=== PATIENT | male | born 1960 | race Caucasian/White ===

== ENCOUNTER 2016-10-17 05:34 | Emergency (ER) | payer MEDICARE ==
[~2016-10-17 05:34] MED LIST: ADV250INH INH; ALBU17IN INH; AMLO10TA2 PO; CEFT250T8 PO; DOCU10CA PO; GLIP2.5T PO; GLIP2.5T2 PO; HYDR25TAB PO; INSULANT SC; IPRASOL4 NEB; LOSA100T36 PO; METO50TA2 PO; MUCI600T34 PO; PRAV40TA PO; PRED10TA PO; PRED20TA PO; PRED20TAB PO; TYLE325T5 PO; VITA400C29 PO
--- NOTE | 2016-10-17 09:16 | REP ---
CHEST X-RAY: TWO VIEWS. History: Right-sided pleuritic pain. Findings: The lungs are well inflated and clear. Pleural angles are sharp. Heart size is normal. Pulmonary vasculature is not increased. No significant bony abnormality is seen. No change from comparison study March 30, 2015. Impression: Negative chest x-ray. Signed by Scotty Aguilar MD 10/17/2016 10:30 A
--- NOTE | 2016-10-17 09:24 | EDDOCDS ---
Physician Documentation [facility] Name: Rodríguez Foley Age: 56 yrs Sex: Male : 1960 Arrival Date: 10/17/2016 Time: 05:34 Bed 9 Private MD: Disposition: 10/17/16 09:02 Discharged to Home/Self Care. Impression: Pleurisy, Sebaceous cyst - LEFT posterior neck. - Condition is Stable. - Discharge Instructions: Epidermal Cyst, Fyif-ss-Lxni, Pleurisy, Qitc-lv-Eeys. - Medication Reconciliation, Local Pharmacy Hours form. - Follow up: Ruben Nicole PA-C; When: Call to arrange an appointment; Reason: Further diagnostic work-up, Recheck today's complaints, Continuance of care. - Problem is new. - Symptoms have improved. Historical: - Allergies: No known drug Allergies; - Home Meds: 1. Spiriva with HandiHaler 18 mcg Inhl CpDv 1 cap once daily (Last dose: 10/16/2016) 2. Symbicort inhalation 2 times per day 3. ventolin inhaler as needed 4. amlodipine 10 mg Oral tab 1 tab once daily (Last dose: 10/17/2016) 5. metoprolol tartrate 50 mg Oral tab 1 tab 2 times per day (Last dose: 10/17/2016) 6. losartan 100 mg oral tab 1 tab once daily (Last dose: 10/17/2016) - PMHx: Diabetes - NIDDM: controlled; Emphysema; Hypercholesterolemia; Hypertension; - PSHx: cyst removed from neck; - Social history: Smoking status: Patient states former smoker of tobacco. No barriers to communication noted, The patient speaks fluent Samoan, Speaks appropriately for age. - Family history: No immediate family members are acutely ill. - : The pt / caregiver states he / she is not on anticoagulants. Home medication list is obtained from the patient, [employer] import data. - Exposure Risk Screening:: None identified. Vital Signs: 10/17 05:41 BP 179 / 94; Pulse 69; Resp 18; Temp 98.9(TE); Pulse Ox 95% on R/A; Weight 117.93 kg / kmg1 259.99 lbs (R); Height 5 ft. 8 in. (172.72 cm) (R); Pain 10/10; 09:22 BP 142 / 89; Pulse 71; Resp 18; Temp 97.4; Pulse Ox 96% ; Pain 3/10; hs1 05:41 Body Mass Index 39.53 (117.93 kg, 172.72 cm) kmg1 MDM: 07:17 Chest, 2 View (pa\E\lat) Ordered. EDMS 07:55 Financial registration complete. mm15 08:25 COUNTS INCLUDE 234 BEDS AT THE [facility] Payment Agreement was scanned into [employer] and attached to record. mm15 Signatures: Dispatcher [employer] EDMS Marcia Garcia, RN RN kmg1 Nathanael Landry PA PA btw Alicja Gunn RN RN hs1 Karan Funk mm15 The chart was reviewed and I authenticate all verbal orders and agree with the evaluation and treatment provided.Corrections: (The following items were deleted from the chart) 05:46 05:41 Home Meds: losartan 100 mg oral tab 1 tab once daily (Last Dose: 10/16/2016); [id number] 05:46 05:41 Home Meds: amlodipine 10 mg Oral tab 1 tab once daily (Last Dose: 10/16/2016); [facility]mg1 05:46 05:41 Home Meds: metoprolol tartrate 50 mg Oral tab 1 tab 2 times per day (Last Dose: km 10/16/2016); km Attachments: 08:25 COUNTS INCLUDE 234 BEDS AT THE [facility] Payment Agreement mm15 MTDD
--- NOTE | 2016-10-17 09:24 | EDDOCDS ---
Nurse's Notes [facility] Name: Rodríguez Foley Age: 56 yrs Sex: Male : 1960 Arrival Date: 10/17/2016 Time: 05:34 Bed 9 Private MD: Diagnosis: Pleurisy;Sebaceous cyst-LEFT posterior neck Presentation: 10/17 05:37 Presenting complaint: Patient states: Pain under the ribs on the right. Cough started kmg1 this morning. Abscess on back of neck. Suicide/Homicide risk assessment- the patient denies having any suicidal and/or homicidal ideations and does not present with any other emotional, behavioral or mental health complaints. Status: Patient is not a rehabilitation services aide or dependent. Transition of care: patient was not received from another setting of care. 05:37 Acuity: CORINNA Level 4 km 05:37 Method Of Ar[place] [facility] [place] Adult Sepsis Screening: The patient does not have new or worsening altered mentation. hs1 Patient's respiratory rate is less than 22. Systolic blood pressure is greater than 100. Patient has a qSOFA score of 0- Negative Sepsis Screen. Triage Assessment: 05:41 General: Appears in no apparent distress, comfortable, Behavior is appropriate for age, kmg1 cooperative. Pain: Location: posterior cervical area and right scapular area Pain currently is 10 out of 10 on a pain scale. Aggravated by Deep breathing and coughing. HIV screening NA for this visit Offered previously. Respiratory: Onset: The symptoms/episode began/occurred suddenly, Breath sounds with wheezes Reports cough that is pain with cough. 05:41 Derm: Abscess located on scalp and posterior cervical area. kmg1 Historical: - Allergies: No known drug Allergies; - Home Meds: 1. Spiriva with HandiHaler 18 mcg Inhl CpDv 1 cap once daily (Last dose: 10/16/2016) 2. Symbicort inhalation 2 times per day 3. ventolin inhaler as needed 4. amlodipine 10 mg Oral tab 1 tab once daily (Last dose: 10/17/2016) 5. metoprolol tartrate 50 mg Oral tab 1 tab 2 times per day (Last dose: 10/17/2016) 6. losartan 100 mg oral tab 1 tab once daily (Last dose: 10/17/2016) - PMHx: Diabetes - NIDDM: controlled; Emphysema; Hypercholesterolemia; Hypertension; - PSHx: cyst removed from neck; - Social history: Smoking status: Patient states former smoker of tobacco. No barriers to communication noted, The patient speaks fluent Sri Lankan, Speaks appropriately for age. - Family history: No immediate family members are acutely ill. - : The pt / caregiver states he / she is not on anticoagulants. Home medication list is obtained from the patient, [employer] import data. - Exposure Risk Screening:: None identified. Screenin:20 Screening information is obtained from the patient. Fall risk: No risks identified. hs1 Assistance ADL's: requires no assistance with activities of daily living. Abuse/DV Screen: The patient / caregiver reports he/she is: not in a situation that causes fear, pain or injury. Nutritional screening: No deficits noted. Advance Directives: There is no active DNR order. home support is adequate. Assessment: 06:06 General: Appears in no apparent distress, comfortable, pt sitting in chair snoring when ko2 nurse went into room. Neurological: Level of Consciousness is awake, alert. Cardiovascular: Heart tones S1 S2 present Chest pain is denied. Respiratory: Airway is patent Respiratory effort is even, unlabored, Breath sounds are clear bilaterally. Breath sounds are diminished. GI: Abdomen is obese, Bowel sounds present X 4 quads. Derm: Skin is normal. 07:15 General: Appears in no apparent distress, comfortable, Behavior is appropriate for age, hs1 cooperative. Pain: Location: base of the skull Pain currently is 6 out of 10 on a pain scale. Neurological: Level of Consciousness is awake, alert, obeys commands. Cardiovascular: No deficits noted. Respiratory: Airway is patent Respiratory effort is even, unlabored, Breath sounds are clear bilaterally. GI: Abdomen is non- distended. Derm: Skin is pink, warm & dry. normal. 08:25 Reassessment: Patient appears in no apparent distress at this time. Patient states hs1 feeling better. Patient states symptoms have improved. Pt states feeling much better than previous. No needs noted. . Vital Signs: 05:41 BP 179 / 94; Pulse 69; Resp 18; Temp 98.9(TE); Pulse Ox 95% on R/A; Weight 117.93 kg kmg1 (R); Height 5 ft. 8 in. (172.72 cm) (R); Pain 10/10; 09:22 BP 142 / 89; Pulse 71; Resp 18; Temp 97.4; Pulse Ox 96% ; Pain 3/10; hs1 05:41 Body Mass Index 39.53 (117.93 kg, 172.72 cm) [facility] [place]: 05:41 Log In Time: October 17, 2016 at 05:34. [facility] [place] Course: 05:36 Patient visited by Debbi Bonner. gjb 05:36 Patient moved to Waiting gjb 05:39 [place] [facility] [place]:47 Theodora Varma RN is Primary Nurse. kmg1 05:47 Patient moved to 9 km 06:08 Patient visited by Theodora Varma RN. ko2 06:19 Patient visited by Jen Andino PCA. cln 06:19 Pt greeted and oriented to ED. Patient advised of names of staff involved in care, cln location of call ruiz, wait times and NPO status. Patient has correct armband on for positive identification. Bed in low position. Call light in reach. Side rails up X 1. 07:11 Nathanael Landry PA is PHCP. btw 07:11 Viktor Paniagua MD is Attending Physician. btw 07:11 Patient visited by Nathanael Landry PA. btw 07:22 Primary Nurse role handed off by Theodora Varma RN deg 07:44 Patient visited by Alicja Gunn RN. hs1 08:25 [facility] Payment Agreement was scanned into [employer] and attached to record. mm15 08:30 Patient visited by Alicja Gunn RN. hs1 09:01 Patient visited by Nya Kumar PCA. ct3 09:02 Ruben Nicole PA-C is Referral Physician. btw 09:20 No IV's were initiated during this patient's visit. No procedures done that require hs1 assistance. 09:21 The patient / caregiver is instructed regarding the plan of care and ED course. hs1 09:23 Chest, 2 View (pa\E\lat) Returned. EDMS Order Results: Radiology Order: Chest, 2 View (pa\E\lat) Test: Chest, 2 View (pa\E\lat) REASON FOR EXAMINATION: RLL pleuritic pain; CHEST X-RAY: TWO VIEWS.; ; History: Right-sided pleuritic pain.; ; Findings: The lungs are well inflated and clear. Pleural angles are sharp.; Heart size is normal. Pulmonary vasculature is not increased. No significant; bony abnormality is seen. No change from comparison study March 30, 2015.; ; Impression:; ; Negative chest x-ray.; ; ; ; ; Unreviewed; Outcome: 09:02 Discharge ordered by Provider. btw 09:20 Discharge Assessment: Patient awake, alert and oriented x 3. No cognitive and/or hs1 functional deficits noted. Patient verbalized understanding of disposition instructions. patient administered narcotics - no. The following High Risk Discharge criteria are identified: None. Discharged to home ambulatory, with significant other. Condition: stable. Discharge instructions given to patient, significant other, Instructed on discharge instructions, follow up and referral plans. medication usage, Demonstrated understanding of instructions, medications, Pt was receptive of discharge instructions/ teaching. No special radiology studies were completed. Property sent home with patient. 09:23 Patient left the ED. hs1 Signatures: Dispatcher [employer] EDMS Nadine Giang, Cuff Slitter Unit deg Marcia Garcia, RN RN kmg1 Nathanael Landry PA PA btw Alicja Gunn RN RN hs1 Nya Kumar, [employer] WORKER [employer] WORKER ct3 Karan Funk mm15 Theodora Varma,RN RN ko2 Debbi Bonner Crystal, [employer] FACTORY WORKER [employer] FA[employer]ORY WORKER cln Corrections: (The following items were deleted from the chart) 05:46 05:41 Home Meds: losartan 100 mg oral tab 1 tab once daily (Last Dose: 10/16/2016); [id number] 05:46 05:41 Home Meds: amlodipine 10 mg Oral tab 1 tab once daily (Last Dose: 10/16/2016); km kmg1 05:46 05:41 Home Meds: metoprolol tartrate 50 mg Oral tab 1 tab 2 times per day (Last Dose: kmg1 10/16/2016); km MTDD
--- NOTE | 2016-10-19 10:23 | EDDOCDS ---
Physician Documentation [facility] Name: Rodríguez Foley Age: 56 yrs Sex: Male : 1960 Arrival Date: 10/17/2016 Time: 05:34 Bed 9 Private MD: Disposition: 10/17/16 09:02 Discharged to Home/Self Care. Impression: Pleurisy, Sebaceous cyst - LEFT posterior neck. - Condition is Stable. - Discharge Instructions: Epidermal Cyst, Hchu-sg-Wgro, Pleurisy, Ebne-mn-Pqub. - Medication Reconciliation, Local Pharmacy Hours form. - Follow up: Ruben Nicole PA-C; When: Call to arrange an appointment; Reason: Further diagnostic work-up, Recheck today's complaints, Continuance of care. - Problem is new. - Symptoms have improved. Historical: - Allergies: No known drug Allergies; - Home Meds: 1. Spiriva with HandiHaler 18 mcg Inhl CpDv 1 cap once daily (Last dose: 10/16/2016) 2. Symbicort inhalation 2 times per day 3. ventolin inhaler as needed 4. amlodipine 10 mg Oral tab 1 tab once daily (Last dose: 10/17/2016) 5. metoprolol tartrate 50 mg Oral tab 1 tab 2 times per day (Last dose: 10/17/2016) 6. losartan 100 mg oral tab 1 tab once daily (Last dose: 10/17/2016) - PMHx: Diabetes - NIDDM: controlled; Emphysema; Hypercholesterolemia; Hypertension; - PSHx: cyst removed from neck; - Social history: Smoking status: Patient states former smoker of tobacco. No barriers to communication noted, The patient speaks fluent Ivorian, Speaks appropriately for age. - Family history: No immediate family members are acutely ill. - : The pt / caregiver states he / she is not on anticoagulants. Home medication list is obtained from the patient, [employer] import data. - Exposure Risk Screening:: None identified. Vital Signs: 10/17 05:41 BP 179 / 94; Pulse 69; Resp 18; Temp 98.9(TE); Pulse Ox 95% on R/A; Weight 117.93 kg / kmg1 259.99 lbs (R); Height 5 ft. 8 in. (172.72 cm) (R); Pain 10/10; 09:22 BP 142 / 89; Pulse 71; Resp 18; Temp 97.4; Pulse Ox 96% ; Pain 3/10; hs1 05:41 Body Mass Index 39.53 (117.93 kg, 172.72 cm) kmg1 MDM: 07:17 Chest, 2 View (pa\E\lat) Ordered. EDMS 07:55 Financial registration complete. mm15 08:25 [facility] Payment Agreement was scanned into [employer] and attached to record. mm15 13:14 T-Sheet-- Draft Copy was scanned into [employer] and attached to record. gb Signatures: Dispatcher [employer] EDMS Marcia Garcia RN RN kmg1 Jackie Lopez, Reg Reg gb Nathanael Landry PA PA btw Alicja Gunn RN RN hs1 Karan Funk mm15 The chart was reviewed and I authenticate all verbal orders and agree with the evaluation and treatment provided.Corrections: (The following items were deleted from the chart) 05:46 05:41 Home Meds: losartan 100 mg oral tab 1 tab once daily (Last Dose: 10/16/2016); [id number] 05:46 05:41 Home Meds: amlodipine 10 mg Oral tab 1 tab once daily (Last Dose: 10/16/2016); km kmg1 05:46 05:41 Home Meds: metoprolol tartrate 50 mg Oral tab 1 tab 2 times per day (Last Dose: kmg1 10/16/2016); kmg1 Attachments: 08:25 [facility] Payment Agreement mm15 13:14 T-Sheet-- Draft Copy gb Chart Complete MTDD
--- NOTE | 2016-10-19 10:23 | EDDOCDS ---
Physician Documentation [facility] Name: Rodríguez Foley Age: 56 yrs Sex: Male : 1960 Arrival Date: 10/17/2016 Time: 05:34 Bed 9 Private MD: Disposition: 10/17/16 09:02 Discharged to Home/Self Care. Impression: Pleurisy, Sebaceous cyst - LEFT posterior neck. - Condition is Stable. - Discharge Instructions: Epidermal Cyst, Leqx-of-Vren, Pleurisy, Wjun-eu-Cdan. - Medication Reconciliation, Local Pharmacy Hours form. - Follow up: Ruben Nicole PA-C; When: Call to arrange an appointment; Reason: Further diagnostic work-up, Recheck today's complaints, Continuance of care. - Problem is new. - Symptoms have improved. Historical: - Allergies: No known drug Allergies; - Home Meds: 1. Spiriva with HandiHaler 18 mcg Inhl CpDv 1 cap once daily (Last dose: 10/16/2016) 2. Symbicort inhalation 2 times per day 3. ventolin inhaler as needed 4. amlodipine 10 mg Oral tab 1 tab once daily (Last dose: 10/17/2016) 5. metoprolol tartrate 50 mg Oral tab 1 tab 2 times per day (Last dose: 10/17/2016) 6. losartan 100 mg oral tab 1 tab once daily (Last dose: 10/17/2016) - PMHx: Diabetes - NIDDM: controlled; Emphysema; Hypercholesterolemia; Hypertension; - PSHx: cyst removed from neck; - Social history: Smoking status: Patient states former smoker of tobacco. No barriers to communication noted, The patient speaks fluent Syrian, Speaks appropriately for age. - Family history: No immediate family members are acutely ill. - : The pt / caregiver states he / she is not on anticoagulants. Home medication list is obtained from the patient, [employer] import data. - Exposure Risk Screening:: None identified. Vital Signs: 10/17 05:41 BP 179 / 94; Pulse 69; Resp 18; Temp 98.9(TE); Pulse Ox 95% on R/A; Weight 117.93 kg / kmg1 259.99 lbs (R); Height 5 ft. 8 in. (172.72 cm) (R); Pain 10/10; 09:22 BP 142 / 89; Pulse 71; Resp 18; Temp 97.4; Pulse Ox 96% ; Pain 3/10; hs1 05:41 Body Mass Index 39.53 (117.93 kg, 172.72 cm) kmg1 MDM: 07:17 Chest, 2 View (pa\E\lat) Ordered. EDMS 07:55 Financial registration complete. mm15 08:25 [facility] Payment Agreement was scanned into [employer] and attached to record. mm15 13:14 T-Sheet-- Draft Copy was scanned into [employer] and attached to record. gb Signatures: Dispatcher [employer] EDMS Marcia Garcia RN RN kmg1 Jackie Lopez, Reg Reg gb Nathanael Landry PA PA btw Alicja Gunn RN RN hs1 Karan Funk mm15 The chart was reviewed and I authenticate all verbal orders and agree with the evaluation and treatment provided.Corrections: (The following items were deleted from the chart) 05:46 05:41 Home Meds: losartan 100 mg oral tab 1 tab once daily (Last Dose: 10/16/2016); [id number] 05:46 05:41 Home Meds: amlodipine 10 mg Oral tab 1 tab once daily (Last Dose: 10/16/2016); km kmg1 05:46 05:41 Home Meds: metoprolol tartrate 50 mg Oral tab 1 tab 2 times per day (Last Dose: kmg1 10/16/2016); kmg1 Attachments: 08:25 [facility] Payment Agreement mm15 13:14 T-Sheet-- Draft Copy gb Chart Complete MTDD
--- NOTE | 2016-10-19 10:24 | EDDOCDS ---
Nurse's Notes [facility] Name: Rodríguez Foley Age: 56 yrs Sex: Male : 1960 Arrival Date: 10/17/2016 Time: 05:34 Bed 9 Private MD: Diagnosis: Pleurisy;Sebaceous cyst-LEFT posterior neck Presentation: 10/17 05:37 Presenting complaint: Patient states: Pain under the ribs on the right. Cough started kmg1 this morning. Abscess on back of neck. Suicide/Homicide risk assessment- the patient denies having any suicidal and/or homicidal ideations and does not present with any other emotional, behavioral or mental health complaints. 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 Transition of care: patient was not received from another setting of care. 05:37 Acuity: CORINNA Level 4 km 05:37 Method Of Arrival: Walkin/Carried/Asstd [facility] 07:15 Adult Sepsis Screening: The patient does not have new or worsening altered mentation. hs1 Patient's respiratory rate is less than 22. Systolic blood pressure is greater than 100. Patient has a qSOFA score of 0- Negative Sepsis Screen. Triage Assessment: 05:41 General: Appears in no apparent distress, comfortable, Behavior is appropriate for age, kmg1 cooperative. Pain: Location: posterior cervical area and right scapular area Pain currently is 10 out of 10 on a pain scale. Aggravated by Deep breathing and coughing. HIV screening NA for this visit Offered previously. Respiratory: Onset: The symptoms/episode began/occurred suddenly, Breath sounds with wheezes Reports cough that is pain with cough. 05:41 Derm: Abscess located on scalp and posterior cervical area. kmg1 Historical: - Allergies: No known drug Allergies; - Home Meds: 1. Spiriva with HandiHaler 18 mcg Inhl CpDv 1 cap once daily (Last dose: 10/16/2016) 2. Symbicort inhalation 2 times per day 3. ventolin inhaler as needed 4. amlodipine 10 mg Oral tab 1 tab once daily (Last dose: 10/17/2016) 5. metoprolol tartrate 50 mg Oral tab 1 tab 2 times per day (Last dose: 10/17/2016) 6. losartan 100 mg oral tab 1 tab once daily (Last dose: 10/17/2016) - PMHx: Diabetes - NIDDM: controlled; Emphysema; Hypercholesterolemia; Hypertension; - PSHx: cyst removed from neck; - Social history: Smoking status: Patient states former smoker of tobacco. No barriers to communication noted, The patient speaks fluent Guatemalan, Speaks appropriately for age. - Family history: No immediate family members are acutely ill. - : The pt / caregiver states he / she is not on anticoagulants. Home medication list is obtained from the patient, [employer] import data. - Exposure Risk Screening:: None identified. Screenin:20 Screening information is obtained from the patient. Fall risk: No risks identified. hs1 Assistance ADL's: requires no assistance with activities of daily living. Abuse/DV Screen: The patient / caregiver reports he/she is: not in a situation that causes fear, pain or injury. Nutritional screening: No deficits noted. Advance Directives: There is no active DNR order. home support is adequate. Assessment: 06:06 General: Appears in no apparent distress, comfortable, pt sitting in chair snoring when ko2 nurse went into room. Neurological: Level of Consciousness is awake, alert. Cardiovascular: Heart tones S1 S2 present Chest pain is denied. Respiratory: Airway is patent Respiratory effort is even, unlabored, Breath sounds are clear bilaterally. Breath sounds are diminished. GI: Abdomen is obese, Bowel sounds present X 4 quads. Derm: Skin is normal. 07:15 General: Appears in no apparent distress, comfortable, Behavior is appropriate for age, hs1 cooperative. Pain: Location: base of the skull Pain currently is 6 out of 10 on a pain scale. Neurological: Level of Consciousness is awake, alert, obeys commands. Cardiovascular: No deficits noted. Respiratory: Airway is patent Respiratory effort is even, unlabored, Breath sounds are clear bilaterally. GI: Abdomen is non- distended. Derm: Skin is pink, warm & dry. normal. 08:25 Reassessment: Patient appears in no apparent distress at this time. Patient states hs1 feeling better. Patient states symptoms have improved. Pt states feeling much better than previous. No needs noted. . Vital Signs: 05:41 BP 179 / 94; Pulse 69; Resp 18; Temp 98.9(TE); Pulse Ox 95% on R/A; Weight 117.93 kg kmg1 (R); Height 5 ft. 8 in. (172.72 cm) (R); Pain 10/10; 09:22 BP 142 / 89; Pulse 71; Resp 18; Temp 97.4; Pulse Ox 96% ; Pain 3/10; hs1 05:41 Body Mass Index 39.53 (117.93 kg, 172.72 cm) [facility] Vitals: 05:41 Log In Time: October 17, 2016 at 05:34[address] [facility] ED Course: 05:36 Patient visited by Debbi Bonner. gjb 05:36 Patient moved to Waiting gjb 05:[address] [facility] 05:47 Theodora Varma RN is Primary Nurse. kmg1 05:47 Patient moved to 9 km 06:08 Patient visited by Theodora Varma RN. ko2 06:19 Patient visited by Jen Andino PCA. cln 06:19 Pt greeted and oriented to ED. Patient advised of names of staff involved in care, cln location of call ruiz, wait times and NPO status. Patient has correct armband on for positive identification. Bed in low position. Call light in reach. Side rails up X 1. 07:11 Nathanael Landry PA is PHCP. btw 07:11 Viktor Paniagua MD is Attending Physician. btw 07:11 Patient visited by Nathanael Landry PA. btw 07:22 Primary Nurse role handed off by Theodora Varma RN deg 07:44 Patient visited by Alicja Gunn RN. hs1 08:25 [facility] Payment Agreement was scanned into [employer] and attached to record. mm15 08:30 Patient visited by Alicja Gunn RN. hs1 09:01 Patient visited by Nya Kumar PCA. ct3 09:02 Ruben Nicole PA-C is Referral Physician. btw 09:20 No IV's were initiated during this patient's visit. No procedures done that require hs1 assistance. 09:21 The patient / caregiver is instructed regarding the plan of care and ED course. hs1 09:23 Chest, 2 View (pa\E\lat) Returned. EDMS 13:14 T-Sheet-- Draft Copy was scanned into [employer] and attached to record. gb Order Results: Radiology Order: Chest, 2 View (pa\E\lat) Test: Chest, 2 View (pa\E\lat) REASON FOR EXAMINATION: RLL pleuritic pain; CHEST X-RAY: TWO VIEWS.; ; History: Right-sided pleuritic pain.; ; Findings: The lungs are well inflated and clear. Pleural angles are sharp.; Heart size is normal. Pulmonary vasculature is not increased. No significant; bony abnormality is seen. No change from comparison study March 30, 2015.; ; Impression:; ; Negative chest x-ray.; ; ; Signed by; Scotty Aguilar MD 10/17/2016 10:30 A; Outcome: 09:02 Discharge ordered by Provider. btw 09:20 Discharge Assessment: Patient awake, alert and oriented x 3. No cognitive and/or hs1 functional deficits noted. Patient verbalized understanding of disposition instructions. patient administered narcotics - no. The following High Risk Discharge criteria are identified: None. Discharged to home ambulatory, with significant other. Condition: stable. Discharge instructions given to patient, significant other, Instructed on discharge instructions, follow up and referral plans. medication usage, Demonstrated understanding of instructions, medications, Pt was receptive of discharge instructions/ teaching. No special radiology studies were completed. Property sent home with patient. 09:23 Patient left the ED. hs1 Signatures: Dispatcher [employer] EDMS Nadine Giang, Stripper Preliminary Unit deg Marcia Garcia RN RN kmg1 Jackie Lopez, Reg Reg gb Nathanael Landry PA PA btw Alicja Gunn RN RN hs1 Nya Kumar, TEACHER RESOURCE TEACHER RESOURCE ct3 Karan Funk mm15 Theodora Varma RN RN ko2 Debbi Bonner Crystal, TEACHER RESOURCE TEACHER RESOURCE cln Corrections: (The following items were deleted from the chart) 05:46 05:41 Home Meds: losartan 100 mg oral tab 1 tab once daily (Last Dose: 10/16/2016); [id number] 05:46 05:41 Home Meds: amlodipine 10 mg Oral tab 1 tab once daily (Last Dose: 10/16/2016); km kmg1 05:46 05:41 Home Meds: metoprolol tartrate 50 mg Oral tab 1 tab 2 times per day (Last Dose: kmg1 10/16/2016); km Chart Complete MTDD
== END 2016-10-17 09:23 | disposition home or self-care (01) ==
LOC: M ED 05:34
DX: L72.3 Sebaceous cyst (principal); R07.1 Chest pain on breathing; J43.9 Emphysema, unspecified; I10 Essential (primary) hypertension; E11.9 Type 2 diabetes mellitus without complications; Z87.891 Personal history of nicotine dependence; Z79.51 Long term (current) use of inhaled steroids; Z79.899 Other long term (current) drug therapy

== ENCOUNTER → 2016-10-27 | Outpatient (REF) | payer MEDICARE | LOC: M SFHCPLAZ 11:27 | PROVIDERS: ATTEND Physician Assistant | DX: L02.11 Cutaneous abscess of neck (principal) ==

== ENCOUNTER → 2017-03-28 | Outpatient (REF) | payer MEDICARE ==
[~2017-03-28] MED LIST changes: -METO50TA2 PO; +METO50TA7 PO; -MUCI600T34 PO; +MUCI600T37 PO; +VITA-110 PO; -VITA400C29 PO
[2017-03-28 14:46] LABS: ALBUMIN 3.8 GM/DL (3.2-5.2); ALBUMIN/GLOBULIN RATIO 1.19 (1.00-1.93); ALKALINE PHOSPHATASE 99 U/L (45-117); ALT/SGPT 20 U/L (12-78); ANION GAP 7 MEQ/L (8-16); AST/SGOT 6 U/L (15-37); BILIRUBIN,TOTAL 0.9 MG/DL (0.2-1.0); BLOOD UREA NITROGEN 13 MG/DL (7-18); CALCIUM LEVEL 8.6 MG/DL (8.5-10.1); CARBON DIOXIDE LEVEL 28 MEQ/L (21-32); CHLORIDE LEVEL 102 MEQ/L (98-107); CHOLESTEROL LEVEL 158 MG/DL (<200); CREATININE FOR GFR 0.85 MG/DL (0.70-1.30); GLOMERULAR FILTRATION RATE > 60.0 (>56); GLUCOSE, FASTING 268 MG/DL (70-105); POTASSIUM SERUM 4.4 MEQ/L (3.5-5.1); SODIUM LEVEL 137 MEQ/L (136-145); TRIGLYCERIDES LEVEL 93 MG/DL (<150)
== END ==
LOC: M SFHCPLAZ 08:28
PROVIDERS: ATTEND Physician Assistant
DX: E11.9 Type 2 diabetes mellitus without complications (principal); Z11.59 Encounter for screening for other viral diseases; E78.4 Other hyperlipidemia; Z12.5 Encounter for screening for malignant neoplasm of prostate
CPT/HCPCS: 36415; 80053; 80061; 82043; 83036; 86803; G0103; G0463

== ENCOUNTER → 2017-07-04 | Outpatient (REF) | payer MEDICARE | LOC: M SFHCPLAZ 14:18 | PROVIDERS: ATTEND Physician Assistant | DX: E11.9 Type 2 diabetes mellitus without complications (principal) | CPT/HCPCS: 83036; G0463 ==

== ENCOUNTER 2017-08-26 14:16 | Emergency (ER) | payer MEDICARE ==
[~2017-08-26] VITALS: Ht 172.7 cm; Wt 124.8 kg
[2017-08-26] MEDS ORDERED: SPIR12.9 (14:29)
[2017-08-26] MEDS ORDERED: SYMB16INH (14:29)
[2017-08-26 15:30] LABS: BASO # 0.1 10^3/uL (0.0-0.2); BASO % 0.5 % (0.0-1.0); EOS # 0.2 10^3/uL (0.0-0.50); EOS % 2.2 % (0.0-3.0); IMMATURE GRANULOCYTE % 0.3 % (0-0); LYMPH # 3.1 10^3/uL (1.5-4.5); LYMPH % 28.4 % (24.0-44.0); MEAN CORPUSCULAR HEMOGLOBIN 28.7 pg (27.0-33.0); MEAN CORPUSCULAR HGB CONC 34.1 g/dl (32.0-36.5); MEAN CORPUSCULAR VOLUME 84.3 fl (80.0-96.0); MONO # 0.8 10^3/uL (0.0-0.8); MONO % 7.1 % (0.0-5.0); NEUTROPHILS # 6.7 10^3/uL (1.8-7.7); NEUTROPHILS % 61.5 % (36.0-66.0); PLATELET COUNT, AUTOMATED 393 10^3/uL (150-450); RED CELL DISTRIBUTION WIDTH 13.2 % (11.5-14.5); WHITE BLOOD COUNT 10.9 10^3/uL (4.0-10.0)
[2017-08-26] MEDS ORDERED: methylPREDNISolone INJ 125 MG/2 ML VIAL (J2930) IV ONE (15:30)
[2017-08-26] MEDS ORDERED: IPRATROPIUM 0.5MG/ALBUTEROL 2.5MG INH SOL UD 3ML (DUONEB)(J7620) NEB ONE (15:30)
[2017-08-26 16:03] LABS: ANION GAP 6 MEQ/L (8-16); BLOOD UREA NITROGEN 18 MG/DL (7-18); CALCIUM LEVEL 8.8 MG/DL (8.5-10.1); CARBON DIOXIDE LEVEL 29 MEQ/L (21-32); CHLORIDE LEVEL 104 MEQ/L (98-107); CREATININE FOR GFR 1.05 MG/DL (0.70-1.30); GLOMERULAR FILTRATION RATE > 60.0 (>56); GLUCOSE, FASTING 135 MG/DL (70-105); POTASSIUM SERUM 4.1 MEQ/L (3.5-5.1); SODIUM LEVEL 139 MEQ/L (136-145)
[2017-08-26] MEDS ORDERED: DOXY100C37 PO (17:40)
[2017-08-26] MEDS ORDERED: DOXYCYCLINE HYCLATE 100 MG TAB PO ONE (17:45)
[2017-08-26 17:54] VITALS: BP 176/89
--- NOTE | 2017-08-27 07:32 | REP ---
CHEST, SINGLE VIEW: There is no evidence of acute infiltrate. No pleural effusion is seen. The heart is normal in size. The mediastinal silhouette is unremarkable. The visualized osseous structures are intact. IMPRESSION: No acute pulmonary disease. Signed by Nader Newby MD 08/27/2017 05:27 P
--- NOTE | 2017-08-27 21:23 | ECGEPIP ---
Stationary ECG Study [facility] - ED Test Date: 2017-08-26 Pat Name: ARA BROWN Department: Room: - Gender: M Car Pilot: JKatalina : 1960 Requested By: SLADE Briggs Order Number: [id number] Reading MD: Jessie Vick Measurements Intervals [place] Rate: 73 P: 58 ME: 152 QRS: -47 QRSD: 102 T: 30 QT: 396 QTc: 437 Interpretive Statements SINUS RHYTHM INCOMPLETE RIGHT BUNDLE BRANCH BLOCK LEFT ANTERIOR FASCICULAR BLOCK Electronically Signed On 08-27-2017 21:23:14 EST by Jessie Vick
== END 2017-08-26 18:03 | disposition home or self-care (01) ==
LOC: M ED 14:16
DX: J44.1 Chronic obstructive pulmonary disease with (acute) exacerbation (principal); I10 Essential (primary) hypertension; E11.9 Type 2 diabetes mellitus without complications; Z87.891 Personal history of nicotine dependence
CPT/HCPCS: 71010; 80048; 83605; 83880; 85025; 93005; 93041; 94640; 94760; 96374; 99285; J2930

== ENCOUNTER 2017-11-20 14:06 | Emergency (ER) | payer MEDICARE ==
[2017-11-20] MEDS: predniSONE 20 MG TAB PO (15:39)
[2017-11-20] MEDS: IPRATROPIUM 0.5MG/ALBUTEROL 2.5MG INH SOL UD 3ML (DUONEB)(J7620) NEB (16:05)
[2017-11-20] MEDS: ACETAMINOPHEN 325 MG TAB PO (18:53)
[2017-11-20] MEDS: BENZONATATE 100 MG CAP PO (18:53)
== END 2017-11-20 19:03 | disposition home or self-care (01) ==
LOC: M ED 14:06
DX: J20.5 Acute bronchitis due to respiratory syncytial virus (principal); I10 Essential (primary) hypertension; E11.9 Type 2 diabetes mellitus without complications; J44.9 Chronic obstructive pulmonary disease, unspecified; J45.909 Unspecified asthma, uncomplicated; Z79.899 Other long term (current) drug therapy; Z79.4 Long term (current) use of insulin
CPT/HCPCS: 71046

== ENCOUNTER 2017-11-22 07:22 | Emergency (ER) | payer MEDICARE ==
[2017-11-22] MEDS: IBUPROFEN 800 MG TAB PO (08:19)
[2017-11-22] MEDS: IPRATROPIUM 0.5MG/ALBUTEROL 2.5MG INH SOL UD 3ML (DUONEB)(J7620) NEB (08:19)
== END 2017-11-22 09:01 | disposition home or self-care (01) ==
LOC: M ED 07:22
DX: J20.5 Acute bronchitis due to respiratory syncytial virus (principal); E11.9 Type 2 diabetes mellitus without complications; I10 Essential (primary) hypertension; J45.909 Unspecified asthma, uncomplicated; M54.5 Low back pain; Z79.899 Other long term (current) drug therapy; Z79.4 Long term (current) use of insulin; Z87.891 Personal history of nicotine dependence
CPT/HCPCS: 99283

== ENCOUNTER 2018-05-29 07:35 | Day surgery (SDC) | payer MEDICARE ==
[2018-05-29] MEDS: NS 1,000 ML IV (07:54)
[2018-05-29] MEDS ORDERED: LIDOCAINE 2% INJ 100 MG/5 ML SDV (FOR ANES.) As Ordered (09:15)
[2018-05-29] MEDS ORDERED: PROPOFOL 200 MG/20 ML VIAL As Ordered (09:15)
== END 2018-05-29 09:59 | disposition home or self-care (01) ==
LOC: M OPP 07:35
DX: Z12.11 Encounter for screening for malignant neoplasm of colon (principal); Z86.010 Personal history of colon polyps; I10 Essential (primary) hypertension; E78.00 Pure hypercholesterolemia, unspecified; E11.9 Type 2 diabetes mellitus without complications; K44.9 Diaphragmatic hernia without obstruction or gangrene; M50.20 Other cervical disc displacement, unspecified cervical region; J44.9 Chronic obstructive pulmonary disease, unspecified; Z79.4 Long term (current) use of insulin; Z79.899 Other long term (current) drug therapy; Z87.891 Personal history of nicotine dependence
CPT/HCPCS: 45378

== ENCOUNTER 2019-01-09 09:38 | Emergency (ER) | payer MEDICARE, SELFPAY ==
[~2019-01-09] VITALS: Ht 172.7 cm; Wt 119.4 kg
[~2019-01-09 09:38] MED LIST changes: -AMLO10TA2 PO; +AMLO10TA5 PO; +CHLO25TA PO; +DOXY100C37 PO; +GLIP10TA18 PO; +HYDR-2541 PO; -HYDR25TAB PO; +INSUH10VL SC; +IPRA0.00 NEB; -IPRASOL4 NEB; -LOSA100T36 PO; +LOSA100T50 PO; +METF500T13 PO; +PRED-351 PO; -PRED10TA PO; +PRED10TA2 PO; +SPIR12.9; +SPIR12.9 INH; +SYMB16INH; +TESS100C PO
[2019-01-09] MEDS ORDERED: ALBUTEROL SULFATE 2.5 MG/0.5 ML INH NEB SOLN NEB ONE (10:15)
[2019-01-09] MEDS ORDERED: predniSONE 20 MG TAB PO ONE (10:15)
--- NOTE | 2019-01-09 10:43 | REP ---
Chest x-ray: Two views. History: Shortness of breath . Cough. Comparison study: November 20, 2017 . Findings: The lungs are well inflated and free of infiltrate. The pleural angles are sharp. The heart size is normal. Pulmonary vasculature is not increased. No significant bony abnormality is seen. Impression: Negative chest x-ray. Electronically Signed by Scotty Aguilar MD 01/09/2019 10:35 A
[2019-01-09 11:20] LABS: INFLUENZA A AMPLIFICATION POSITIVE (NEGATIVE); INFLUENZA B AMPLIFICATION NEGATIVE (NEGATIVE)
[2019-01-09] MEDS ORDERED: PRED20TA PO (11:31)
[2019-01-09] MEDS ORDERED: OSEL75CA PO (11:31)
[2019-01-09 11:50] VITALS: BP 159/74
[2019-01-09] MEDS ORDERED: ACETAMINOPHEN 325 MG TAB PO ONE (12:00)
[2019-01-10] MEDS ORDERED: NOVO1INJ18 SC (18:37)
[2019-01-10] MEDS ORDERED: ATEN50TA2 PO (18:38)
== END 2019-01-09 12:07 | disposition home or self-care (01) ==
LOC: M ED 09:38
DX: J44.1 Chronic obstructive pulmonary disease with (acute) exacerbation (principal); J09.X2 Influenza due to identified novel influenza A virus with other respiratory manifestations; E11.9 Type 2 diabetes mellitus without complications; I10 Essential (primary) hypertension; Z79.4 Long term (current) use of insulin; Z79.899 Other long term (current) drug therapy; Z87.891 Personal history of nicotine dependence

== ENCOUNTER 2019-01-10 18:30 | Emergency (ER) | payer SELFPAY ==
[~2019-01-10] VITALS: Ht 172.7 cm; Wt 118.6 kg
[~2019-01-10 18:30] MED LIST changes: +OSEL75CA PO
[2019-01-10] MEDS ORDERED: NOVO1INJ18 SC (18:37)
[2019-01-10] MEDS ORDERED: ATEN50TA2 PO (18:38)
--- NOTE | 2019-01-10 19:33 | REP ---
Clinical: Shortness of breath and flu-like symptoms . Comparison: 01/09/2019 . Technique: PA and lateral. Findings: The mediastinum and cardiac silhouette are normal. The lung mac are clear and without acute consolidation, effusion, or pneumothorax. The skeletal structures are intact and normal. Impression: 1. No acute cardiopulmonary process. Electronically Signed by Aravind Lloyd MD 01/10/2019 07:25 P
[2019-01-10] MEDS ORDERED: HumuLIN R (REGULAR) INSULIN (NovoLIN R) **100U/ML** PER UNIT SC ONE (20:15)
[2019-01-10] MEDS ORDERED: NS 1,000 ML IV ONE (20:15)
[2019-01-10 20:39] LABS: BASO % 0.2 % (0.0-1.0); HEMATOCRIT 41.8 % (42.0-52.0); HEMOGLOBIN 14.5 g/dl (13.5-17.5); LYMPH # 1.7 10^3/uL (1.5-4.5); LYMPH % 17.6 % (24.0-44.0); MEAN CORPUSCULAR HEMOGLOBIN 28.4 pg (27.0-33.0); MEAN CORPUSCULAR HGB CONC 34.7 g/dl (32.0-36.5); MONO # 0.6 10^3/uL (0.0-0.8); MONO % 6.4 % (0.0-5.0); NEUTROPHILS # 7.4 10^3/uL (1.8-7.7); NEUTROPHILS % 75.6 % (36.0-66.0); PLATELET COUNT, AUTOMATED 378 10^3/uL (150-450); VENOUS BASE EXCESS 2.8 (-2.0-2.0); VENOUS HCO3 27.4 MEQ/L (23.0-27.0); VENOUS O2 SATURATION 92.9 % (60.0-80.0); VENOUS PARTIAL PRESSURE CO2 41.9 mmHg (38.0-50.0); VENOUS PARTIAL PRESSURE O2 65.2 mmHg (30.0-50.0); VENOUS PH 7.433 UNITS (7.330-7.430); VENOUS STANDARD HCO3 26.8 MEQ/L; VENOUS TOTAL CO2 28.7 MEQ/L (24.0-28.0); WHITE BLOOD COUNT 9.8 10^3/uL (4.0-10.0)
[2019-01-10 21:07] LABS: ALBUMIN 3.9 GM/DL (3.2-5.2); ALT/SGPT 24 U/L (12-78); BILIRUBIN,TOTAL 0.5 MG/DL (0.2-1.0); BLOOD UREA NITROGEN 23 MG/DL (7-18); CALCIUM LEVEL 9.1 MG/DL (8.5-10.1); CARBON DIOXIDE LEVEL 29 MEQ/L (21-32); CHLORIDE LEVEL 99 MEQ/L (98-107); CREATININE FOR GFR 1.15 MG/DL (0.70-1.30); GLOMERULAR FILTRATION RATE > 60.0 (>56); GLUCOSE, FASTING 373 MG/DL (70-100); POTASSIUM SERUM 4.4 MEQ/L (3.5-5.1); SODIUM LEVEL 134 MEQ/L (136-145); TOTAL PROTEIN 7.4 GM/DL (6.4-8.2)
[2019-01-10] MEDS ORDERED: IPRATROPIUM 0.5MG/ALBUTEROL 2.5MG INH SOL UD 3ML (DUONEB)(J7620) NEB ONE (21:15)
[2019-01-10 22:24] VITALS: BP 173/93
== END 2019-01-10 22:25 | disposition home or self-care (01) ==
LOC: M ED 18:30
DX: J44.1 Chronic obstructive pulmonary disease with (acute) exacerbation (principal); J09.X2 Influenza due to identified novel influenza A virus with other respiratory manifestations; Z79.899 Other long term (current) drug therapy; Z79.84 Long term (current) use of oral hypoglycemic drugs; Z87.891 Personal history of nicotine dependence

== ENCOUNTER → 2019-01-14 | Outpatient (REF) | payer OTHER, SELFPAY ==
[~2019-01-14] MED LIST changes: +ATEN50TA2 PO; +NOVO1INJ18 SC
[2019-01-14 18:18] LABS: BLOOD UREA NITROGEN 21 MG/DL (7-18); CARBON DIOXIDE LEVEL 28 MEQ/L (21-32); CHLORIDE LEVEL 97 MEQ/L (98-107); CHOLESTEROL LEVEL 150 MG/DL (<200); CHOLESTEROL RISK RATIO 3.571 (<5); GLOMERULAR FILTRATION RATE > 60.0 (>56); GLUCOSE, FASTING 352 MG/DL (70-100); HDL CHOLESTEROL 42 MG/DL (>40); HEMOGLOBIN A1c 9.7 %; LDL CHOLESTEROL 89 MG/DL (<100); NON-HDL-C 108 MG/DL; POTASSIUM SERUM 4.2 MEQ/L (3.5-5.1); SODIUM LEVEL 132 MEQ/L (136-145); TRIGLYCERIDES LEVEL 93 MG/DL (<150)
[2019-01-14 18:57] LABS: CREATININE, URINE 54.1 MG/DL; MALB URINE SIEMENS 5.1 MG/L; MAU/CREAT RATIO 9.4 MCG/MG (0.0-30.0)
== END ==
LOC: M SFHCPLAZ 16:02
PROVIDERS: ATTEND Family Medicine
DX: E11.65 Type 2 diabetes mellitus with hyperglycemia (principal); E78.2 Mixed hyperlipidemia; Z12.5 Encounter for screening for malignant neoplasm of prostate

== ENCOUNTER → 2019-02-19 | Outpatient (REF) | payer OTHER, SELFPAY ==
[2019-02-20 08:22] LABS: MUMPS VIRUS IgG ANTIBODY <9.0 AU/mL (Immune >10.9)
[2019-02-20 10:33] LABS: RUBELLA IgG QUALITATIVE IMMUNE (IMMUNE)
== END ==
LOC: M SFHCPLAZ 08:56
PROVIDERS: ATTEND Family Medicine
DX: E11.65 Type 2 diabetes mellitus with hyperglycemia (principal); Z78.9 Other specified health status

== ENCOUNTER → 2019-10-29 | Outpatient (REF) | payer OTHER ==
[2019-10-29 12:02] LABS: BLOOD UREA NITROGEN 12 MG/DL (7-18); CALCIUM LEVEL 9.3 MG/DL (8.5-10.1); CARBON DIOXIDE LEVEL 28 MEQ/L (21-32); CREATININE FOR GFR 0.99 MG/DL (0.70-1.30); GLOMERULAR FILTRATION RATE > 60.0 (>56); GLUCOSE, FASTING 116 MG/DL (70-100)
[2019-10-29 12:08] LABS: CHLORIDE LEVEL 105 MEQ/L (98-107); POTASSIUM SERUM 3.8 MEQ/L (3.5-5.1); SODIUM LEVEL 139 MEQ/L (136-145)
[2019-10-29 12:45] LABS: HEMOGLOBIN A1c 7.9 %
== END ==
LOC: M SFHCPLAZ 08:57
PROVIDERS: ATTEND Nurse Practitioner Family
DX: E11.65 Type 2 diabetes mellitus with hyperglycemia (principal); I10 Essential (primary) hypertension

== ENCOUNTER → 2020-02-10 | Outpatient (REF) | payer OTHER ==
[2020-02-10 14:31] LABS: ALBUMIN 3.8 GM/DL (3.2-5.2); ALT/SGPT 23 U/L (12-78); BLOOD UREA NITROGEN 19 MG/DL (7-18); CALCIUM LEVEL 9.5 MG/DL (8.5-10.1); CARBON DIOXIDE LEVEL 31 MEQ/L (21-32); CHLORIDE LEVEL 101 MEQ/L (98-107); CHOLESTEROL LEVEL 134 MG/DL (<200); CHOLESTEROL RISK RATIO 3.722 (<5); CREATININE FOR GFR 0.93 MG/DL (0.70-1.30); GLOMERULAR FILTRATION RATE > 60.0 (>56); GLUCOSE, FASTING 90 MG/DL (70-100); HDL CHOLESTEROL 36 MG/DL (>40); LDL CHOLESTEROL 79 MG/DL (<100); NON-HDL-C 98 MG/DL; POTASSIUM SERUM 3.9 MEQ/L (3.5-5.1); SODIUM LEVEL 138 MEQ/L (136-145); TOTAL PROTEIN 7.6 GM/DL (6.4-8.2); TRIGLYCERIDES LEVEL 96 MG/DL (<150)
[2020-02-10 14:44] LABS: HEMOGLOBIN A1c 7.5 %
[2020-02-10 14:54] LABS: CREATININE, URINE 54.3 MG/DL; MALB URINE SIEMENS < 5.0 MG/L; MAU/CREAT RATIO 9.2 MCG/MG (0.0-30.0)
== END ==
LOC: M SFHCPLAZ 09:26
PROVIDERS: ATTEND Family Medicine
DX: I10 Essential (primary) hypertension (principal); E11.65 Type 2 diabetes mellitus with hyperglycemia; E78.2 Mixed hyperlipidemia; Z12.5 Encounter for screening for malignant neoplasm of prostate

== ENCOUNTER → 2020-10-22 | Outpatient (REF) | payer OTHER ==
[~2020-10-22] MED LIST changes: -AMLO10TA5 PO; +AMLO1TAB25 PO
[2020-10-22 14:33] LABS: BLOOD UREA NITROGEN 17 MG/DL (7-18); CALCIUM LEVEL 9.7 MG/DL (8.5-10.1); CARBON DIOXIDE LEVEL 34 MEQ/L (21-32); CHLORIDE LEVEL 100 MEQ/L (98-107); CREATININE FOR GFR 0.96 MG/DL (0.70-1.30); GLOMERULAR FILTRATION RATE > 60.0 (>56); GLUCOSE, FASTING 63 MG/DL (70-100); POTASSIUM SERUM 4.4 MEQ/L (3.5-5.1); SODIUM LEVEL 139 MEQ/L (136-145)
[2020-10-22 14:52] LABS: HEMOGLOBIN A1c 6.8 %
== END ==
LOC: M SFHCPLAZ 09:04
PROVIDERS: ATTEND Family Medicine
DX: E11.65 Type 2 diabetes mellitus with hyperglycemia (principal); I10 Essential (primary) hypertension

== ENCOUNTER → 2021-05-03 | Outpatient (REF) | payer SELFPAY ==
[~2021-05-03] MED LIST changes: -DOXY100C37 PO; +DOXY1CAP62 PO
== END ==
LOC: M SFHCPLAZ 16:44
PROVIDERS: ATTEND Physician Assistant
DX: R05 Cough (principal)

== ENCOUNTER → 2021-10-27 | Outpatient (REF) ==
[~2021-10-27] MED LIST changes: +DOXY-443 PO; -DOXY1CAP62 PO; +LOSA100T45 PO; -LOSA100T50 PO
== END ==
LOC: M LABSMTC 09:41
PROVIDERS: ATTEND Pediatrics
DX: Z11.52 Encounter for screening for COVID-19 (principal); Z20.822 Contact with and (suspected) exposure to COVID-19

== ENCOUNTER → 2021-11-19 | Outpatient (CLI) | payer SELFPAY ==
[2021-11-19 07:20] LABS: BLOOD UREA NITROGEN 12 MG/DL (7-18); CALCIUM LEVEL 9.4 MG/DL (8.8-10.2); CARBON DIOXIDE LEVEL 33 MEQ/L (21-32); CHLORIDE LEVEL 102 MEQ/L (98-107); CREATININE FOR GFR 0.92 MG/DL (0.70-1.30); GLOMERULAR FILTRATION RATE > 60.0 (>49); GLUCOSE, FASTING 144 MG/DL (70-100); MALB URINE SIEMENS 9.8 MG/L; MAU/CREAT RATIO 6.3 MCG/MG (0.0-30.0); POTASSIUM SERUM 3.8 MEQ/L (3.5-5.1); SODIUM LEVEL 142 MEQ/L (136-145)
[2021-11-19 07:21] LABS: CHOLESTEROL LEVEL 161 MG/DL (<200); CHOLESTEROL RISK RATIO 4.351 (<5); HDL CHOLESTEROL 37 MG/DL (>40); LDL CHOLESTEROL 111 MG/DL (<100); NON-HDL-C 124 MG/DL; TRIGLYCERIDES LEVEL 67 MG/DL (<150)
== END ==
LOC: M LAB 06:25
PROVIDERS: ATTEND Family Medicine
DX: E11.65 Type 2 diabetes mellitus with hyperglycemia (principal); I10 Essential (primary) hypertension; Z12.5 Encounter for screening for malignant neoplasm of prostate; E78.2 Mixed hyperlipidemia
CPT/HCPCS: 36415; 80048; 80061; 82043; 83036; G0103

== ENCOUNTER 2022-05-16 04:37 | Emergency (ER) | payer SELFPAY ==
[~2022-05-16] VITALS: Ht 172.7 cm; Wt 113.6 kg
[2022-05-16] MEDS ORDERED: IPRATROPIUM 0.5MG/ALBUTEROL 2.5MG INH SOL UD 3ML (DUONEB) NEB ONE (05:05)
[2022-05-16 05:29] LABS: BASO # 0.1 10^3/uL (0.0-0.2); BASO % 0.5 % (0.0-1.0); EOS # 0.4 10^3/uL (0.0-0.5); EOS % 3.5 % (0.0-3.0); HEMOGLOBIN 14.5 g/dl (13.5-17.5); LYMPH # 3.7 10^3/uL (1.5-5.0); LYMPH % 32.9 % (24.0-44.0); MEAN CORPUSCULAR HEMOGLOBIN 28.7 pg (27.0-33.0); MEAN CORPUSCULAR VOLUME 87.1 fl (80.0-96.0); MONO # 0.8 10^3/uL (0.0-0.8); MONO % 6.7 % (2.0-8.0); NEUTROPHILS # 6.3 10^3/uL (1.5-8.5); PLATELET COUNT, AUTOMATED 376 10^3/uL (150-450); RED BLOOD COUNT 5.05 10^6/uL (4.30-6.10); WHITE BLOOD COUNT 11.3 10^3/uL (4.0-10.0)
[2022-05-16 05:59] LABS: BLOOD UREA NITROGEN 10 MG/DL (7-18); CALCIUM LEVEL 8.8 MG/DL (8.8-10.2); CARBON DIOXIDE LEVEL 31 MEQ/L (21-32); CHLORIDE LEVEL 102 MEQ/L (98-107); CREATININE FOR GFR 0.85 MG/DL (0.70-1.30); GLOMERULAR FILTRATION RATE > 60.0 (>49); GLUCOSE, FASTING 271 MG/DL (70-100); MAGNESIUM LEVEL 2.2 MG/DL (1.8-2.4); SODIUM LEVEL 138 MEQ/L (136-145)
[2022-05-16] MEDS ORDERED: LOSARTAN 50MG TABLET PO ONE (06:05)
[2022-05-16] MEDS ORDERED: atenoloL 50 MG TAB PO ONE (06:05)
[2022-05-16] MEDS ORDERED: metFORMIN XR 500MG TAB *GLUCOPHAGE XR PO ONE (06:05)
[2022-05-16] MEDS ORDERED: CHLORTHALIDONE 25 MG TAB PO ONE (06:05)
[2022-05-16] MEDS ORDERED: HumuLIN (NovoLIN)70/30 INSULIN INJ PER UNIT SC ONE (06:10)
[2022-05-16] MEDS ORDERED: metFORMIN (GLUCOPHAGE) 1000MG TABLET PO ONE (06:15)
[2022-05-16] MEDS ORDERED: methylPREDNISolone 125MG 2ML VIAL IV ONE (07:20)
[2022-05-16 07:43] VITALS: BP 134/61
[2022-05-16 07:46] VITALS: BP 173/79
[2022-05-16] MEDS ORDERED: PRED20TA PO (07:46)
== END 2022-05-16 07:55 | disposition home or self-care (01) ==
LOC: M ED 04:37
DX: J44.1 Chronic obstructive pulmonary disease with (acute) exacerbation (principal); R94.31 Abnormal electrocardiogram [ECG] [EKG]; E11.9 Type 2 diabetes mellitus without complications; I10 Essential (primary) hypertension; E78.5 Hyperlipidemia, unspecified; J45.909 Unspecified asthma, uncomplicated; Z79.4 Long term (current) use of insulin; Z79.899 Other long term (current) drug therapy
CPT/HCPCS: 71045; 80048; 83735; 84145; 84484; 85025; 87486; 87581; 87633; 87798; 93005; 94640; 96374; 99285; J1815; J2930

== ENCOUNTER → 2022-11-18 | Outpatient (CLI) | payer SELFPAY ==
[2022-11-18 12:05] LABS: BASO # 0.1 10^3/uL (0.0-0.2); BASO % 0.7 % (0.0-1.0); EOS # 0.3 10^3/uL (0.0-0.5); EOS % 3.3 % (0.0-3.0); HEMATOCRIT 43.7 % (42.0-52.0); HEMOGLOBIN 14.4 g/dl (13.5-17.5); LYMPH # 2.8 10^3/uL (1.5-5.0); LYMPH % 30.8 % (24.0-44.0); MEAN CORPUSCULAR HEMOGLOBIN 28.6 pg (27.0-33.0); MEAN CORPUSCULAR VOLUME 86.7 fl (80.0-96.0); MONO # 0.7 10^3/uL (0.0-0.8); MONO % 7.8 % (2.0-8.0); NEUTROPHILS # 5.3 10^3/uL (1.5-8.5); PLATELET COUNT, AUTOMATED 403 10^3/uL (150-450); RED BLOOD COUNT 5.04 10^6/uL (4.30-6.10); WHITE BLOOD COUNT 9.2 10^3/uL (4.0-10.0)
[2022-11-18 12:34] LABS: CREATININE, URINE 70.9 MG/DL; MALB URINE SIEMENS < 3.0 MG/DL; MAU/CREAT RATIO 4.2 MCG/MG (0.0-30.0)
[2022-11-18 12:35] LABS: ALKALINE PHOSPHATASE 54 U/L (46-116); ALT/SGPT 19 U/L (7.0-40); AST/SGOT < 8 U/L (<34); BILIRUBIN,TOTAL 0.9 MG/DL (0.3-1.2); BLOOD UREA NITROGEN 14 MG/DL (9-23); CALCIUM LEVEL 9.4 MG/DL (8.3-10.6); CARBON DIOXIDE LEVEL 33 MMOL/L (20-31); CHLORIDE LEVEL 101 MMOL/L (98-107); CHOLESTEROL LEVEL 94 MG/DL (<200); CREATININE FOR GFR 0.81 MG/DL (0.70-1.30); GLOMERULAR FILTRATION RATE > 60.0 (>49); GLUCOSE, FASTING 160 MG/DL (74-106); POTASSIUM SERUM 4.6 MMOL/L (3.5-5.1); SODIUM LEVEL 137 MMOL/L (136-145); TRIGLYCERIDES LEVEL 62 MG/DL (<150)
[2022-11-18 12:36] LABS: ALBUMIN 3.8 G/DL (3.2-5.2); CHOLESTEROL RISK RATIO 2.56 (<5); HDL CHOLESTEROL 36.6 MG/DL (>40); NON-HDL-C 57 MG/DL; TOTAL PROTEIN 6.9 G/DL (5.7-8.2)
[2022-11-18 12:41] LABS: HEMOGLOBIN A1c 6.8 % (4.0-6.0)
== END ==
LOC: M PLALAB 08:03
PROVIDERS: ATTEND Physician Assistant
DX: E11.65 Type 2 diabetes mellitus with hyperglycemia (principal); Z12.5 Encounter for screening for malignant neoplasm of prostate
CPT/HCPCS: 36415; 80053; 80061; 82043; 83036; 85025; G0103

== ENCOUNTER → 2025-06-27 | Outpatient (REF) | payer SELFPAY ==
[~2025-06-27] MED LIST changes: -ADV250INH INH; +ADVA1AER9 INH; +DOXY-441 PO; -DOXY-443 PO; +GLIP-320 PO; -GLIP10TA18 PO; -LOSA100T45 PO; +LOSA100T46 PO
== END ==
LOC: M SFHCPLAZ 17:42
PROVIDERS: ATTEND Family Medicine
DX: J44.9 Chronic obstructive pulmonary disease, unspecified (principal); I10 Essential (primary) hypertension; E11.65 Type 2 diabetes mellitus with hyperglycemia; E78.2 Mixed hyperlipidemia